=== PATIENT | male | born 1935 | race Caucasian/White ===

== ENCOUNTER 2019-03-05 10:21 | Inpatient (IN) | payer MEDICARE, OTHER ==
[~2019-03-05] VITALS: Ht 176 cm; Wt 71.4 kg
[~2019-03-05 10:21] MED LIST: ACET325T49 PO; ALBU2.5V4 INH; ASCORBIC ACID 300 MG; ASP325T; ASP81CT; ASPI-586 PO; ATRV10T; BETA1TAB15 PO; BISA5TAB8 PO; CARV3.122 PO; CHOL10002; DOCU100C37 PO; HYDR-3820 PO; HYDROCODONE/APAP; LACT20SO2 PO; LISI-556 PO; LUMIGAN EYE; MULT1TAB63; OMG1KC; OMG1KC PO; PRAV40TA2 PO; PRESSOR VISION PO; RMP5C; SENN-141 PO; TRAM50TA2 PO; ULTRAM; [UNRECOGNIZED DRUG - OTHER]
--- NOTE | 2019-03-05 10:31 | ED GI ---
General Stated Complaint: BLOOD IN STOOL Source of Information: Patient Exam Limitations: No Limitations History of Present Illness Date Seen by Provider: Mar 05, 2019 Time Seen by Provider: 10:29 Initial Comments ER with reports of grossly bloody stools including clots, he states this has filled with stool with blood 2 or 3 times today, no history of this no abdominal pain no lightheadedness no shortness of breath. He is not on any anticoagulant or antiplatelet medications. Timing/Duration: 4-6 Hours Radiation: No Radiation Activities at Onset: None Allergies and Home Medications Allergies Coded Allergies: No Known Drug Allergies (Unverified , 11/15/15) Home Medications Bisacodyl 5 Mg Tablet.dr, 5 MG PO PRN PRN for CONSTIPATION Prescribed by: ANSELMO LUNA on 03/17/16932 Carvedilol 3.125 Mg Tablet, 3.125 MG PO BID, (Reported) Docusate Sodium 100 Mg Capsule, 100 MG PO BID Prescribed by: ANSELMO LUNA on 03/17/16932 Hydrocodone/Acetaminophen 1 Each Tablet, 1 TAB PO Q4H PRN for PAIN Prescribed by: ANSELMO LUNA on 03/28/16 1251 Ibuprofen 200 Mg Tablet, 200 MG PO Q6H PRN for PAIN-MILD, (Reported) Lisinopril 5 Mg Tablet, 5 MG PO DAILY, (Reported) [place] 3 Polyunsat Fatty Acids 1,000 Mg Cap, 1,000 MG PO BID, (Reported) Pravastatin Sodium 40 Mg Tablet, 40 MG PO HS, (Reported) Sennosides 8.6 Mg Tablet, 8.6 MG PO BID Prescribed by: ANSELMO LUNA on 03/17/16932 Vit A/Vit C/Vit E/Zinc/Copper 1 Each Tablet, 1 TAB PO BID, (Reported) Patient Home Medication List Home Medication List Reviewed: Yes (Where) Review of Systems Review of Systems Constitutional: see HPI EENTM: No Symptoms Reported Respiratory: No Symptoms Reported Cardiovascular: No Symptoms Reported Gastrointestinal: See HPI; Denies Abdominal Pain, Denies Diarrhea, Denies Nausea; Rectal Bleeding Genitourinary: No Symptoms Reported Musculoskeletal: no symptoms reported Skin: no symptoms reported Psychiatric/Neurological: No Symptoms Reported Endocrine: No Symptoms Reported Past Bputwfx-Tguknh-Klfpes Hx Patient Social History Former Smoker, Quit: Nov 20, 1969 Recent Foreign Travel: No Contact w/Someone Who Travel: No Recent Hopitalizations: No Immunizations Up To Date Tetanus Booster (TDap): More than 5yrs Date of Pneumonia Vaccine: Nov 21, 1999 Seasonal Allergies Seasonal Allergies: Yes Past Medical History CABG, Open Heart Surgery, Orthopedic Asthma Currently Using CPAP: No Currently Using BIPAP: No Coronary Artery Disease Reproductive Disorders: No Sexually Transmitted Disease: No HIV/AIDS: No Gastroesophageal Reflux, Chronic Constipation, Polyps Back Injury Cataract Loss of Vision: Bilateral Hearing Impairment: Hard of Hearing Adverse Reaction/Blood Tranf: No Family Medical History Cancer Physical Exam Vital Signs Vital Signs - First Documented 03/05/19 10:21 Temp 36.7 Pulse 54 Resp 18 B/P (MAP) 145/100 (115) Pulse Ox 97 O2 Delivery Room Air Capillary Refill : Height/Weight/BMI Height: 6'0.00" Weight: 169lbs. 0.8oz. [id number]; 22.0 BMI Method:Stated General Appearance: WD/WN, no apparent distress, other (is alert and oriented conversational appropriate and pleasant.) HEENT: PERRL/EOMI, normal ENT inspection Neck: non-tender, full range of motion Respiratory: no respiratory distress, no accessory muscle use Cardiovascular: regular rate, rhythm, no murmur Gastrointestinal: normal bowel sounds, non tender, soft Extremities: normal range of motion, non-tender Progress/Results/Core Measures Results/Orders Lab Results Laboratory Tests Test 03/05/19 10:27 Range/Units White Blood Count 9.6 4.3-11.0 10^3/uL Red Blood Count 3.97 L 4.35-5.85 10^6/uL Hemoglobin 12.0 L 13.3-17.7 G/DL Hematocrit 37 L 40-54 % Mean Corpuscular Volume 92 80-99 FL Mean Corpuscular Hemoglobin 30 25-34 PG Mean Corpuscular Hemoglobin Concent 33 32-36 G/DL Red Cell Distribution Width 12.5 10.0-14.5 % Platelet Count 251 130-400 10^3/uL Mean Platelet Volume 9.8 7.4-10.4 FL Neutrophils (%) (Auto) 66 42-75 % Lymphocytes (%) (Auto) 22 12-44 % Monocytes (%) (Auto) 9 0-12 % Eosinophils (%) (Auto) 3 0-10 % Basophils (%) (Auto) 0 0-10 % Neutrophils # (Auto) 6.3 1.8-7.8 X 10^3 Lymphocytes # (Auto) 2.1 1.0-4.0 X 10^3 Monocytes # (Auto) 0.9 0.0-1.0 X 10^3 Eosinophils # (Auto) 0.3 0.0-0.3 10^3/uL Basophils # (Auto) 0.0 0.0-0.1 10^3/uL Prothrombin Time 13.5 12.2-14.7 SEC INR Comment 1.0 0.8-1.4 Activated Partial Thromboplast Time 33 24-35 SEC Sodium Level 141 135-145 MMOL/L Potassium Level 4.0 3.6-5.0 MMOL/L Chloride Level 108 H 98-107 MMOL/L Carbon Dioxide Level 24 21-32 MMOL/L Anion Gap 9 5-14 MMOL/L Blood Urea Nitrogen 22 H 7-18 MG/DL Creatinine 0.86 0.60-1.30 MG/DL Estimat Glomerular Filtration Rate > 60 BUN/Creatinine Ratio 26 Glucose Level 99 70-105 MG/DL Calcium Level 9.6 8.5-10.1 MG/DL Corrected Calcium 9.4 8.5-10.1 MG/DL Total Bilirubin 1.0 0.1-1.0 MG/DL Aspartate Amino Transf (AST/SGOT) 18 5-34 U/L Alanine Aminotransferase (ALT/SGPT) 18 0-55 U/L Alkaline Phosphatase 96 40-136 U/L Total Protein 6.8 6.4-8.2 GM/DL Albumin 4.3 3.2-4.5 GM/DL My Orders Orders - BUD BOWDEN APRN Cbc With Automated Diff (03/05/19 10:24) Comprehensive Metabolic Panel (03/05/19 10:24) Ed Iv/Invasive Line Start (03/05/19 10:24) Protime With Inr (03/05/19 10:24) Partial Thromboplastin Time (03/05/19 10:24) Red Cells Leukocytes Reduced (03/05/19 10:24) Type And Screen (03/05/19 10:24) Clonidine Tablet (Catapres Tablet) (03/05/19 11:00) Medications Given in ED Current Medications Medications Dose Ordered Sig/Gerardo Route Start Time Stop Time Status Last Admin Dose Admin Clonidine HCl 0.1 mg ONCE ONCE PO 03/05/19 11:00 03/05/19 11:01 DC 03/05/19 11:25 0.1 MG Vital Signs/I&O 03/05/19 10:21 Temp 36.7 Pulse 54 Resp 18 B/P (MAP) 145/100 (115) Pulse Ox 97 O2 Delivery Room Air Departure Communication (Admissions) Time/Spoke to Admitting Phy: 12:16 Dr. Leigh, agrees with admission, consult surgery. Time/Spoke to Consulting Phy: 12:[address] Menezes, will consult. Impression Primary Impression: GI bleed Qualified Codes: K92.2 - Gastrointestinal hemorrhage, unspecified Disposition: ADMITTED INPATIENT Condition: Stable Admissions Decision to Admit Reason: Admit from ER (General) Decision to Admit/Date: Mar 05, 2019 Time/Decision to Admit Time: 12:00 Departure-Patient Inst. Referrals: CHENG BABCOCK MD (PCP/Family) Primary Care Physician BUD BOWDEN APRN Mar 05, 2019 10:31
[2019-03-05 10:39] LABS: BASOPHILS % (AUTO) 0 % (0-10); EOSINOPHILS # (AUTO) 0.3 10^3/uL (0.0-0.3); EOSINOPHILS % (AUTO) 3 % (0-10); HEMATOCRIT 37 % (40-54); LYMPHOCYTES # (AUTO) 2.1 X 10^3 (1.0-4.0); LYMPHOCYTES % (AUTO) 22 % (12-44); MEAN CORPUSCULAR HEMOGLOBIN 30 PG (25-34); MEAN CORPUSCULAR HGB CONC 33 G/DL (32-36); MEAN CORPUSCULAR VOLUME 92 FL (80-99); MEAN PLATELET VOLUME 9.8 FL (7.4-10.4); MONOCYTES # (AUTO) 0.9 X 10^3 (0.0-1.0); MONOCYTES % (AUTO) 9 % (0-12); NEUTROPHILS # (AUTO) 6.3 X 10^3 (1.8-7.8); NEUTROPHILS % (AUTO) 66 % (42-75); PLATELET COUNT 251 10^3/uL (130-400); RED CELL DISTRIBUTION WIDTH 12.5 % (10.0-14.5); WHITE BLOOD COUNT 9.6 10^3/uL (4.3-11.0)
[2019-03-05 10:51] LABS: PROTHROMBIN TIME PATIENT 13.5 SEC (12.2-14.7)
[2019-03-05 10:57] LABS: ALANINE AMINOTRANSFERASE 18 U/L (0-55); ALBUMIN 4.3 GM/DL (3.2-4.5); ALKALINE PHOSPHATASE 96 U/L (40-136); BUN/CREATININE RATIO 26; CALCIUM 9.6 MG/DL (8.5-10.1); CARBON DIOXIDE 24 MMOL/L (21-32); CHLORIDE 108 MMOL/L (98-107); CREATININE SERUM 0.86 MG/DL (0.60-1.30); GFR ESTIMATED > 60; GLUCOSE 99 MG/DL (70-105); SODIUM 141 MMOL/L (135-145); TOTAL PROTEIN 6.8 GM/DL (6.4-8.2)
[2019-03-05] MEDS ORDERED: cloNIDine 0.1 MG (CATAPRES) TAB PO ONE (11:00)
--- NOTE | 2019-03-05 11:27 | NUR ---
BUD BROUGHT INTO THE ROOM TO SHOW HIM THE BLOOD THAT WAS PASSED. PT STATES IT IS THE 3RD TIME HE HAS WENT SINCE HE CAME HERE. PT DENIES PAIN.
--- NOTE | 2019-03-05 12:20 | NUR ---
PT NOTIFEID OF ROOM NUMBER AND PLANS FOR ADMIT. PT STATES HE HAS PASSED MORE BLOOD.
--- NOTE | 2019-03-05 12:40 | NUR ---
DR HENSON IN TALKING TO PT.
--- NOTE | 2019-03-05 13:00 | NUR ---
RDLUKE admitted to room 415-1, with an admitting diagnosis of GI BLEED, on 03/05/19 from ED via STRETCHER, accompanied by AND ED STAFF. LUKE SULTANA introduced to surroundings, call light, bed controls, phone, TV, temperature control, lights, meal times, smoking policy, visitor policy, side rail policy, bathrooms and showers. Patient Rights given to patient in the handbook. LUKE SULTANA verbalizes understanding that [facility] is not responsible for the loss or damage to any personal effects or valuables that are kept in the patients possession during their hospitalization. The following Patient Care Plans were discussed with the PATIENT: Discharge Planning, GI BLEED and KNOWLEDGE DEFICIT LUKE SULTANA verbalizes understanding of Interdisciplinary Patient Education. Patient and/or family were informed about the Rapid Response Team and its purpose.
--- NOTE | 2019-03-05 13:17 | History & Physical-Surgical ---
History of Present Illness History of Present Illness Reason for visit/HPI CC: Bright Red Blood in Stool Patient is an 83 yo male that presented to the ED with a 1 day history of bright red blood including clots in his stool. Mr. Fabian states he has had several bowel movement this morning, all with bright red blood. He states he had blood in his stool prior just after a colonoscopy with polypectomy. He states at that time he continued to bleed from the polyp removal and was seen in the ED. He does not remember when this was but states it was greater than 5 years ago. He denies any use of blood thinners including anticoagulants and antiplatelets. He denies any nausea, vomiting, abdominal pain at this time. He states he struggles with constipation and takes 2 stool softeners daily but that his bowel movements have been regular lately. He denies any shortness of breath, weakness, or dizziness at this time. Date of Admission Mar 05, 2019 at 12:14 Date Seen by a Provider: Mar 05, 2019 Time Seen by a Provider: 13:00 I consulted on this patient on 03/05/19 13:16 Attending Physician Suzanne Leigh MD Admitting Physician Blair Elder MD Consult Dr. Menezes Allergies and Home Medications Allergies Coded Allergies: No Known Drug Allergies (Unverified , 11/15/15) Home Medications Acetaminophen 325 Mg Tablet, 325 MG PO Q6H PRN for Temp over 100 F or Mild Pain Prescribed by: ANSELMO LUNA on 03/17/16932 Aspirin 81 Mg Tablet., 81 MG PO DAILY, (Reported) Bisacodyl 5 Mg Tablet., 5 MG PO PRN PRN for CONSTIPATION Prescribed by: ANSELMO LUNA on 03/17/16 09 Carvedilol 3.125 Mg Tablet, 3.125 MG PO BID, (Reported) Docusate Sodium 100 Mg Capsule, 100 MG PO BID Prescribed by: ANSELMO LUNA on 03/17/16 09 Hydrocodone/Acetaminophen 1 Each Tablet, 1 TAB PO Q4H PRN for PAIN Prescribed by: ANSELMO LUNA on 03/28/16 1251 Lisinopril 5 Mg Tablet, 5 MG PO DAILY, (Reported) [place] 3 Polyunsat Fatty Acids 1,000 Mg Cap, 1,000 MG PO BID, (Reported) Pravastatin Sodium 40 Mg Tablet, 40 MG PO HS, (Reported) Sennosides 8.6 Mg Tablet, 8.6 MG PO BID Prescribed by: ANSELMO LUNA on 03/17/16 0933 Tramadol HCl 50 Mg Tablet, 50 MG PO Q4H PRN for MILD PAIN Prescribed by: ANSELMO LUNA on 03/28/16 1251 Vit A/Vit C/Vit E/Zinc/Copper 1 Each Tablet, 1 TAB PO BID, (Reported) Past Bqpoahz-Zpmumb-Mpdfrp Hx Patient Social History Smoking Status: Former Smoker Former Smoker, Quit: Nov 20, 1969 Recent Foreign Travel: No Contact w/Someone Who Travel: No Recent Infectious Disease Expo: No Recent Hopitalizations: No Immunizations Up To Date Tetanus Booster (TDap): More than 5yrs Date of Pneumonia Vaccine: Nov 21, 1999 Seasonal Allergies Seasonal Allergies: Yes Surgeries History of Surgeries: Yes Surgeries: CABG, Open Heart Surgery, Orthopedic Respiratory History of Respiratory Disorde: Yes Respiratory Disorders: Asthma Cardiovascular History of Cardiac Disorders: Yes (triple bypass) Cardiac Disorders: Coronary Artery Disease Neurological History of Neurological Disord: No Reproductive System Hx Reproductive Disorders: No Sexually Transmitted Disease: No HIV/AIDS: No Gastrointestinal History of Gastrointestinal Di: Yes Gastrointestinal Disorders: Gastroesophageal Reflux, Chronic Constipation, Polyps Musculoskeletal History of Musculoskeletal Dis: Yes Musculoskeletal Disorders: Back Injury Endocrine History of Endocrine Disorders: No HEENT HEENT Disorders: Cataract Loss of Vision: Bilateral Hearing Impairment: Hard of Hearing Cancer History of Cancer: No Psychosocial History of Psychiatric Problem: No Integumentary History of Skin or Integumenta: No Blood Transfusions History of Blood Disorders: No Adverse Reaction to a Blood Tr: No Family Medical History Significant Family History: Cancer Family Medial History: Neoplasm 19 FATHER (LEUKEMIA) 19 MOTHER (STOMACH INTESTINE CANCER) Review of Systems Constitutional: No chills, No dizziness, No fever EENTM: hearing loss (chronic); No nose congestion Respiratory: No cough, No short of breath Cardiovascular: No chest pain, No syncope Gastrointestinal: No abdominal pain, No constipation, No diarrhea; melena; No nausea, No vomiting; other (hematochezia ) Skin: No pruritus, No rash Psychiatric/Neurological: Denies Numbness, Denies Weakness Physical Exam Vital Signs Vital Signs - First Documented 03/05/19 10:21 Temp 36.7 Pulse 54 Resp 18 B/P (MAP) 145/100 (115) Pulse Ox 97 O2 Delivery Room Air Capillary Refill : Less Than 3 Seconds Height, Weight, BMI Height: 6'0.00" Weight: 169lbs. 0.8oz. 76.311604kw; 23.00 BMI Method:Stated General Appearance: No Apparent Distress, WD/WN HEENT: PERRL/EOMI, Pharynx Normal, Moist Mucous Membranes Neck: Non Tender, Supple Respiratory: Chest Non Tender, Lungs Clear, Normal Breath Sounds, No Accessory Muscle Use, No Respiratory Distress Cardiovascular: Regular Rate, Rhythm, No Murmur Gastrointestinal: Normal Bowel Sounds, Non Tender, Soft; No Distended, No Guarding Rectal: Deferred Extremity: No Calf Tenderness, Pedal Edema Neurologic/Psychiatric: Alert, Oriented x3 Skin: Normal Color, Warm/Dry Data Review Labs Laboratory Tests 03/05/19 10:27: White Blood Count 9.6, Red Blood Count 3.97L, Hemoglobin 12.0L, Hematocrit 37L, Mean Corpuscular Volume 92, Mean Corpuscular Hemoglobin 30, Mean Corpuscular Hemoglobin Concent 33, Red Cell Distribution Width 12.5, Platelet Count 251, Mean Platelet Volume 9.8, Neutrophils (%) (Auto) 66, Lymphocytes (%) (Auto) 22, Monocytes (%) (Auto) 9, Eosinophils (%) (Auto) 3, Basophils (%) (Auto) 0, Neutrophils # (Auto) 6.3, Lymphocytes # (Auto) 2.1, Monocytes # (Auto) 0.9, Eosinophils # (Auto) 0.3, Basophils # (Auto) 0.0, Prothrombin Time 13.5, INR Comment 1.0, Activated Partial Thromboplast Time 33, Sodium Level 141, Potassium Level 4.0, Chloride Level 108H, Carbon Dioxide Level 24, Anion Gap 9, Blood Urea Nitrogen 22H, Creatinine 0.86, Estimat Glomerular Filtration Rate > 60, BUN/Creatinine Ratio 26, Glucose Level 99, Calcium Level 9.6, Corrected Calcium 9.4, Total Bilirubin 1.0, Aspartate Amino Transf (AST/SGOT) 18, Alanine Aminotransferase (ALT/SGPT) 18, Alkaline Phosphatase 96, Total Protein 6.8, Albumin 4.3 Assessment/Plan Assessment/Plan Assessment/Plan Bright Red Blood Per Rectum Will continue to monitor hemoglobin, and transfuse if necessary. No surgical intervention needed at this time. If changes may need surgical intervention or colonoscopy, if remains stable/bleeding stops can do colonoscopy outpatient. THAD GOODMAN,MED STUDENT Mar 05, 2019 13:16
[2019-03-05 13:32] VITALS: BP 101/66
--- NOTE | 2019-03-05 13:43 | Consultation - Surgery ---
THAD GOODMAN,MED STUDENT 03/05/19 1343: History of Present Illness History of Present Illness Patient Consulted On(samuel/time) 03/05/19 13:40 Date Seen by Provider: Mar 05, 2019 Time Seen by Provider: 13:00 History of Present Illness CC: Bright Red Blood in Stool Patient is an 83 yo male that presented to the ED with a 1 day history of bright red blood including clots in his stool. Mr. Fabian states he has had several bowel movement this morning, all with bright red blood. He states he had blood in his stool prior just after a colonoscopy with polypectomy. He states at that time he continued to bleed from the polyp removal and was seen in the ED. He does not remember when this was but states it was greater than 5 years ago. He denies any use of blood thinners including anticoagulants and antiplatelets. He denies any nausea, vomiting, abdominal pain at this time. He states he struggles with constipation and takes 2 stool softeners daily but that his bowel movements have been regular lately. He denies any shortness of breath, weakness, or dizziness at this time. Allergies and Home Medications Allergies Coded Allergies: No Known Drug Allergies (Unverified , 11/15/15) Home Medications Bisacodyl 5 Mg Tablet.dr, 5 MG PO PRN PRN for CONSTIPATION Prescribed by: ANSELMO LUNA on 03/17/16 09 Carvedilol 3.125 Mg Tablet, 3.125 MG PO BID, (Reported) Docusate Sodium 100 Mg Capsule, 100 MG PO BID Prescribed by: ANSELMO LUNA on 03/17/16 09 Hydrocodone/Acetaminophen 1 Each Tablet, 1 TAB PO Q4H PRN for PAIN Prescribed by: ANSELMO LUNA on 03/28/16 1251 Ibuprofen 200 Mg Tablet, 200 MG PO Q6H PRN for PAIN-MILD, (Reported) Lisinopril 5 Mg Tablet, 5 MG PO DAILY, (Reported) [place] 3 Polyunsat Fatty Acids 1,000 Mg Cap, 1,000 MG PO BID, (Reported) Pravastatin Sodium 40 Mg Tablet, 40 MG PO HS, (Reported) Sennosides 8.6 Mg Tablet, 8.6 MG PO BID Prescribed by: ANSELMO LUNA on 03/17/16 0933 Vit A/Vit C/Vit E/Zinc/Copper 1 Each Tablet, 1 TAB PO BID, (Reported) Past Jnybzex-Iixbhj-Xxglly Hx Patient Social History Alcohol Use: Denies Use Recreational Drug Use: No Smoking Status: Former Smoker Former Smoker, Quit: Nov 20, 1969 Recent Foreign Travel: No Contact w/Someone Who Travel: No Recent Infectious Disease Expo: No Recent Hopitalizations: No Physical Abuse Screen: No Sexual Abuse: No Immunizations Up To Date Tetanus Booster (TDap): More than 5yrs Date of Pneumonia Vaccine: Nov 21, 1999 Seasonal Allergies Seasonal Allergies: No Surgeries History of Surgeries: Yes (TROY IN HIP) Surgeries: CABG, Open Heart Surgery, Orthopedic Respiratory History of Respiratory Disorde: Yes Respiratory Disorders: Asthma Cardiovascular History of Cardiac Disorders: Yes (triple bypass) Cardiac Disorders: Coronary Artery Disease Neurological History of Neurological Disord: No Reproductive System Hx Reproductive Disorders: No Sexually Transmitted Disease: No HIV/AIDS: No Genitourinary History of Genitourinary Disor: No Gastrointestinal History of Gastrointestinal Di: Yes Gastrointestinal Disorders: Polyps Musculoskeletal History of Musculoskeletal Dis: Yes Musculoskeletal Disorders: Back Injury Endocrine History of Endocrine Disorders: No HEENT History of HEENT Disorders: Yes HEENT Disorders: Cataract Loss of Vision: Bilateral Hearing Impairment: Hard of Hearing Cancer History of Cancer: No Psychosocial History of Psychiatric Problem: No Integumentary History of Skin or Integumenta: No Blood Transfusions History of Blood Disorders: No Adverse Reaction to a Blood Tr: No Family Medical History Significant Family History: Cancer Family Medial History: Neoplasm 19 FATHER (LEUKEMIA) 19 MOTHER (STOMACH INTESTINE CANCER) Review of Systems-General Constitutional: No chills, No dizziness, No fever, No weakness EENTM: hearing loss (chronic); No nose congestion Respiratory: No cough, No short of breath Cardiovascular: No chest pain, No syncope Gastrointestinal: No abdominal pain, No constipation, No diarrhea, No hematemesis, No nausea, No vomiting; other (hematochezia) Skin: No pruritus, No rash Psychiatric/Neurological: Denies Numbness, Denies Weakness Physical Exam-General Problems Physical Exam Vital Signs Vital Signs - First Documented 03/05/19 10:21 Temp 36.7 Pulse 54 Resp 18 B/P (MAP) 145/100 (115) Pulse Ox 97 O2 Delivery Room Air Capillary Refill : Less Than 3 Seconds General Appearance: WD/WN, no apparent distress Eyes: Bilateral Eye PERRL, Bilateral Eye EOMI HEENT: PERRL/EOMI, pharynx normal, other (mucous membranes moist) Respiratory: chest non-tender, lungs clear, normal breath sounds, no respiratory distress, no accessory muscle use Cardiovascular: regular rate, rhythm, no murmur Peripheral Pulses: 2+ Radial Pulses (R), 2+ Radial Pulses (L) Gastrointestinal: normal bowel sounds, non tender, soft; No distended, No guarding, No rebound Rectal: deferred Extremities: no calf tenderness, pedal edema Neurologic/Psychiatric: alert, oriented x 3 Skin: normal color, warm/dry Data Review Labs Laboratory Tests 03/05/19 10:27: White Blood Count 9.6, Red Blood Count 3.97L, Hemoglobin 12.0L, Hematocrit 37L, Mean Corpuscular Volume 92, Mean Corpuscular Hemoglobin 30, Mean Corpuscular Hemoglobin Concent 33, Red Cell Distribution Width 12.5, Platelet Count 251, Mean Platelet Volume 9.8, Neutrophils (%) (Auto) 66, Lymphocytes (%) (Auto) 22, Monocytes (%) (Auto) 9, Eosinophils (%) (Auto) 3, Basophils (%) (Auto) 0, Neutrophils # (Auto) 6.3, Lymphocytes # (Auto) 2.1, Monocytes # (Auto) 0.9, Eosinophils # (Auto) 0.3, Basophils # (Auto) 0.0, Prothrombin Time 13.5, INR Comment 1.0, Activated Partial Thromboplast Time 33, Sodium Level 141, Potassium Level 4.0, Chloride Level 108H, Carbon Dioxide Level 24, Anion Gap 9, Blood Urea Nitrogen 22H, Creatinine 0.86, Estimat Glomerular Filtration Rate > 60, BUN/Creatinine Ratio 26, Glucose Level 99, Calcium Level 9.6, Corrected Calcium 9.4, Total Bilirubin 1.0, Aspartate Amino Transf (AST/SGOT) 18, Alanine Aminotransferase (ALT/SGPT) 18, Alkaline Phosphatase 96, Total Protein 6.8, Albumin 4.3 Assessment/Plan Assessment/Plan Assessment/Plan Bright Red Blood Per Rectum Will continue to monitor hemoglobin, and transfuse if necessary. No surgical intervention needed at this time. If changes may need surgical intervention or colonoscopy, if remains stable/bleeding stops can do colonoscopy outpatient. Clinical Quality Measures DVT/VTE Risk/Contraindication: Risk Factor Score Per Nursin RFS Level Per Nursing on Admit: 2=Moderate RENU HENSON DO 03/05/192028: History of Present Illness History of Present Illness History of Present Illness consult requested by Dr. Leigh patient is an 83 year old male with blood in stool. Bright red and clots. Havi ng multiple bloody stools. Patient does not have any abdominal pain or reflux. He is not on any anticoagulation. Nothing has made things worse or better that he knows. He is not having any dizziness or syncope. Patient has had previous colonoscopy which he had bleeding from years ago. No other complaints at this time. Denies n/v fever sweats chills shortness of breath or chest pain. Allergies and Home Medications Allergies Coded Allergies: No Known Drug Allergies (Unverified , 11/15/15) Home Medications Bisacodyl 5 Mg Tablet.dr, 5 MG PO PRN PRN for CONSTIPATION Prescribed by: ANSELMO LUNA on 03/17/16 0933 Carvedilol 3.125 Mg Tablet, 3.125 MG PO BID, (Reported) Docusate Sodium 100 Mg Capsule, 100 MG PO BID Prescribed by: ANSELMO LUNA on 03/17/16 0933 Hydrocodone/Acetaminophen 1 Each Tablet, 1 TAB PO Q4H PRN for PAIN Prescribed by: ANSELMO LUNA on 03/28/16 1251 Ibuprofen 200 Mg Tablet, 200 MG PO Q6H PRN for PAIN-MILD, (Reported) Lisinopril 5 Mg Tablet, 5 MG PO DAILY, (Reported) [place] 3 Polyunsat Fatty Acids 1,000 Mg Cap, 1,000 MG PO BID, (Reported) Pravastatin Sodium 40 Mg Tablet, 40 MG PO HS, (Reported) Sennosides 8.6 Mg Tablet, 8.6 MG PO BID Prescribed by: ANSELMO LUNA on 03/17/16 0933 Vit A/Vit C/Vit E/Zinc/Copper 1 Each Tablet, 1 TAB PO BID, (Reported) Patient Home Medication List Home Medication List Reviewed: Yes Past Cbbvvmx-Fbgqus-Mdoflv Hx Patient Social History Alcohol Use: Denies Use Recreational Drug Use: No Smoking Status: Former Smoker Surgeries Surgeries: CABG, Open Heart Surgery, Orthopedic Respiratory History of Respiratory Disorde: Yes Respiratory Disorders: Asthma Cardiovascular History of Cardiac Disorders: Yes (triple bypass) Cardiac Disorders: Coronary Artery Disease Genitourinary History of Genitourinary Disor: No Gastrointestinal History of Gastrointestinal Di: Yes Musculoskeletal History of Musculoskeletal Dis: Yes Musculoskeletal Disorders: Back Injury Endocrine History of Endocrine Disorders: No HEENT History of HEENT Disorders: Yes HEENT Disorders: Cataract Hearing Impairment: Hard of Hearing Cancer History of Cancer: No Psychosocial History of Psychiatric Problem: No Integumentary History of Skin or Integumenta: No Blood Transfusions History of Blood Disorders: No Adverse Reaction to a Blood Tr: No Family Medical History Significant Family History: No Pertinent Family Hx, Cancer Family Medial History: Neoplasm 19 FATHER (LEUKEMIA) 19 MOTHER (STOMACH INTESTINE CANCER) Review of Systems-General Constitutional: no symptoms reported EENTM: no symptoms reported, hearing loss (chronic) Respiratory: no symptoms reported Cardiovascular: no symptoms reported Gastrointestinal: see HPI Genitourinary: no symptoms reported Musculoskeletal: no symptoms reported Skin: no symptoms reported Psychiatric/Neurological: No Symptoms Reported Physical Exam-General Problems Physical Exam General Appearance: WD/WN, no apparent distress HEENT: PERRL/EOMI, normal ENT inspection Neck: non-tender, supple Respiratory: chest non-tender, no respiratory distress, no accessory muscle use Cardiovascular: regular rate, rhythm Gastrointestinal: non tender, soft, no organomegaly Rectal: deferred (at this time) Back: normal inspection, no CVA tenderness Extremities: non-tender, normal inspection, no calf tenderness Neurologic/Psychiatric: alert, normal mood/affect, oriented x 3 Skin: normal color, warm/dry Lymphatic: no adenopathy Assessment/Plan Assessment/Plan Assessment/Plan bright red blood per rectum history of polyps patient being admitted for further evaluation follow hgb transfuse prn if continues to have bleed colonoscopy inpatient vs outpatient no surgical intervention at this time will follow Supervisory-Addendum Brief Verification & Attestation Participated in pt care: history, MDM, physical Personally performed: exam, history, MDM, supervision of care Care discussed with: Medical Student Procedures: n/a Results interpretation: Verified all documentation Verification and Attestation of Medical Student E/M Service A medical student performed and documented this service in my presence. I reviewed and verified all information documented by the medical student and made modifications to such information, when appropriate. I personally performed the physical exam and medical decision making. Renu Henson, Mar 05, 2019,20:30 THAD GOODMAN MED STUDENT Mar 05, 2019 13:43 RENU HENSON DO Mar 05, 2019 20:29
--- NOTE | 2019-03-05 15:16 | NUR ---
CALLED DR RM. PATIENT IS REQUESTING PAIN MEDICATION. THE DOCTOR WILL BE HERE SOON TO TALK TO THE PATIENT.
[2019-03-05] MEDS: LACTATED RINGERS 1,000 ML IV SCH (15:32)
[2019-03-05 16:00] VITALS: BP 156/79
[2019-03-05] MEDS ORDERED: IBUP-2055 PO (16:19)
[2019-03-05 16:49] LABS: HEMOGLOBIN 10.6 G/DL (13.3-17.7)
--- NOTE | 2019-03-05 17:50 | NUR ---
LEFT MESSAGE FOR DR RM. THE PATIENT IS STILL WANTING HIS PAIN MEDICATION.
[2019-03-05] MEDS ORDERED: hydrALAZINE (APESOLINE) 20 MG/ML VIAL IV PRN (18:45)
[2019-03-05] MEDS ORDERED: ONDANSETRON 4 MG (ZOFRAN) ORAL DISSOLVE TAB PO PRN (18:45)
[2019-03-05] MEDS ORDERED: MELATONIN 3 MG TABLET PO PRN (18:45)
[2019-03-05] MEDS ORDERED: ONDANSETRON 4 MG/2 ML (SDV) Z0FRAN IVP PRN (18:45)
[2019-03-05] MEDS ORDERED: ANTACID SUSP 30 ML UDC (MYLANTA) PO PRN (18:45)
[2019-03-05] MEDS: HYDROcodone/APAP 10 MG/325 MG (LORTAB) TAB PO PRN ×2 (18:48→21:19)
--- NOTE | 2019-03-05 18:48 | History & Physical-Hospitalist ---
History of Present Illness HPI/Chief Complaint Janes Fabian is an 83yoM with PMH HTN, HLD, who presented with bright red blood per rectum. He reports that he started having bright red blood and clots per rectum. He reports having this once before after a colonoscopy with polypectomy. He reports constipation but says he doesnt strain. He reports having painful hemorrhoids and sometimes there is blood on the toilet paper. He says that he has been going about every 30 minutes since he got here. He denies fevers, chills, chest pain, dyspnea, cough, abdominal pain, nausea, vomiting, and dysuria. He has been taking Ibuprofen frequently for pain. He is also on chronic narcotics for back and leg pain. Source: patient Exam Limitations: no limitations Date Seen 03/05/19 Time Seen by a Provider: 16:30 Attending Physician Suzanne Rm MD PCP Blair Elder MD Referring Physician Date of Admission Mar 05, 2019 at 12:14 Home Medications & Allergies Home Medications Reviewed patient Home Medication Reconciliation performed by pharmacy medication reconciliations clean room technician and/or nursing. Patients Allergies have been reviewed. Allergies Allergies Coded Allergies No Known Drug Allergies (Unverified11/15/15) Past Xvzkpnn-Ersbpi-Adtscb Hx Past Med/Social Hx: Reviewed Nursing Past Med/Soc Hx Patient Social History Alcohol Use: Denies Use Recreational Drug Use: No Smoking Status: Former Smoker Former Smoker, Quit: Nov 20, 1969 Physical Abuse Screen: No Sexual Abuse: No Recent Foreign Travel: No Contact w/other who traveled: No Recent Hopitalizations: No Recent Infectious Disease Expo: No Immunizations Up To Date Tetanus Booster (TDap): More than 5yrs Date of Pneumonia Vaccine: Nov 21, 1999 Seasonal Allergies Seasonal Allergies: No Past Medical History Surgeries: CABG, Open Heart Surgery, Orthopedic Currently Using CPAP: No Currently Using BIPAP: No Cardiac: Coronary Artery Disease Reproductive: No Sexually Transmitted Disease: No HIV/AIDS: No Gastrointestinal: Polyps Musculoskeletal: Back Injury HEENT: Cataract Loss of Vision: Bilateral Hearing Impairment: Hard of Hearing History of Blood Disorders: No Adverse Reaction to Blood Smith: No Family History Neoplasm 19 FATHER (LEUKEMIA) 19 MOTHER (STOMACH INTESTINE CANCER) Cancer Review of Systems Constitutional: no symptoms reported, see HPI EENTM: no symptoms reported Respiratory: no symptoms reported Cardiovascular: no symptoms reported Gastrointestinal: other (hematochezia) Genitourinary: no symptoms reported Musculoskeletal: no symptoms reported Skin: no symptoms reported Psychiatric/Neurological: No Symptoms Reported Physical Exam Physical Exam Vital Signs Vital Signs - First Documented 03/05/19 10:21 Temp 36.7 Pulse 54 Resp 18 B/P (MAP) 145/100 (115) Pulse Ox 97 O2 Delivery Room Air Capillary Refill : Less Than 3 Seconds Height, Weight, BMI Height: 6'0.00" Weight: 169lbs. 0.8oz. [id number]; 23.05 BMI Method:Stated General Appearance: No Apparent Distress, WD/WN, Other (pale) HEENT: PERRL/EOMI, Pharynx Normal, Pale Conjunctivae (L), Pale Conjunctivae (R) Neck: Normal Inspection, Supple Respiratory: Lungs Clear, Normal Breath Sounds, No Respiratory Distress Cardiovascular: Regular Rate, Rhythm, No Edema, No Murmur Gastrointestinal: Normal Bowel Sounds, Non Tender, Soft Extremity: Normal Inspection, Non Tender, No Pedal Edema Neurologic/Psychiatric: Alert, Oriented x3, No Motor/Sensory Deficits, Normal Mood/Affect Skin: Warm/Dry, Pallor Lymphatic: No Adenopathy Results Results/Procedures Labs Laboratory Tests 03/05/19 10:27 03/05/19 16:28 Patient resulted labs reviewed. Assessment/Plan Admission Diagnosis Bright red blood per rectum Admission Status: Inpatient Order (span 2 midnights) Reason for Inpatient Admission: Elderly patient with hematochezia who may require endoscopic intervention Assessment and Plan Bright red blood per rectum External hemorrhoids Acute blood loss anemia -Hgb 12 on admission, 10.9 on repeat -Type and screen done -Continues to have rectal bleeding since admission -NPO at midnight for possible intervention -Repeat Hgb at 2100 -IV fluids ordered -General surgery consulted, appreciate assistance HTN -Received one dose of clonidine in ER -Hold home antihypertensives -IV Hydralazine as needed HLD -Continue statin Chronic back pain -Continue [place] DVT Prophylaxis: SCDs, no pharmacologic prophylaxis due to major active bleeding Diagnosis/Problems Diagnosis/Problems (1) Bright red blood per rectum Status: Acute (2) Acute blood loss anemia Status: Acute (3) External hemorrhoids Status: Chronic (4) HTN (hypertension) Status: Chronic (5) HLD (hyperlipidemia) Status: Chronic Clinical Quality Measures DVT/VTE Risk/Contraindication: Risk Factor Score Per Nursin RFS Level Per Nursing on Admit: 2=Moderate SUZANNE RM MD Mar 05, 2019 18:48
[2019-03-05 20:00] VITALS: BP 117/72
[2019-03-05 21:10] LABS: HEMOGLOBIN 10.1 G/DL (13.3-17.7)
[2019-03-05 23:59] VITALS: BP 155/70
[2019-03-06] MEDS: HYDROcodone/APAP 10 MG/325 MG (LORTAB) TAB PO PRN ×5 (00:56→23:39)
[2019-03-06] MEDS: LACTATED RINGERS 1,000 ML IV SCH ×3 (00:57→20:40)
[2019-03-06 03:47] VITALS: BP 169/73
[2019-03-06 04:58] LABS: BASOPHILS % (AUTO) 0 % (0-10); EOSINOPHILS # (AUTO) 0.2 10^3/uL (0.0-0.3); EOSINOPHILS % (AUTO) 2 % (0-10); HEMATOCRIT 30 % (40-54); HEMOGLOBIN 9.7 G/DL (13.3-17.7); LYMPHOCYTES # (AUTO) 3.3 X 10^3 (1.0-4.0); LYMPHOCYTES % (AUTO) 31 % (12-44); MEAN CORPUSCULAR HEMOGLOBIN 30 PG (25-34); MEAN CORPUSCULAR HGB CONC 32 G/DL (32-36); MEAN CORPUSCULAR VOLUME 93 FL (80-99); MEAN PLATELET VOLUME 10.3 FL (7.4-10.4); MONOCYTES % (AUTO) 9 % (0-12); NEUTROPHILS # (AUTO) 6.3 X 10^3 (1.8-7.8); NEUTROPHILS % (AUTO) 58 % (42-75); PLATELET COUNT 270 10^3/uL (130-400); RED CELL DISTRIBUTION WIDTH 12.7 % (10.0-14.5); WHITE BLOOD COUNT 10.8 10^3/uL (4.3-11.0)
[2019-03-06 05:13] LABS: BUN/CREATININE RATIO 20; CALCIUM 9.1 MG/DL (8.5-10.1); CARBON DIOXIDE 25 MMOL/L (21-32); CHLORIDE 107 MMOL/L (98-107); CREATININE SERUM 0.83 MG/DL (0.60-1.30); GFR ESTIMATED > 60; GLUCOSE 96 MG/DL (70-105); POTASSIUM 3.8 MMOL/L (3.6-5.0); SODIUM 143 MMOL/L (135-145)
[2019-03-06 08:39] VITALS: BP 164/73
[2019-03-06] MEDS: lisINopril 5 MG (PRINIVIL) TABLET PO SCH (08:40)
[2019-03-06] MEDS: CARVEDILOL 3.125 MG (COREG) TABLET PO SCH ×2 (08:40→20:39)
--- NOTE | 2019-03-06 10:07 | Progress Note - Surgery ---
THAD GOODMAN,MED STUDENT 03/06/19 1007: Subjective Date Seen by a Provider: Mar 06, 2019 Time Seen by a Provider: 09:15 Subjective/Events-last exam Patient is an 83 year old male with complaint of bright red blood per rectum. He states that his last bowel movement was last night and had no blood at that time. He denies any abdominal pain, nausea, vomiting, dizziness, or shortness of breath. Review of Systems General: No Chills, No Fatigue HEENT: No Head Aches, No Sinus Congestion Pulmonary: No Dyspnea, No Cough Cardiovascular: No: Chest Pain, Lt Headedness Gastrointestinal: Hematochezia; No: Nausea, Vomiting, Abdominal Pain, Diarrhea, Constipation Genitourinary: No Dysuria, No Retention Musculoskeletal: back pain, leg pain Neurological: No: Weakness, Confusion Objective Exam Vital Signs Date Time Temp Pulse Resp B/P (MAP) Pulse Ox O2 Delivery O2 Flow Rate FiO2 03/06/19 08:39 37.4 58 18 164/73 (103) 100 Room Air 03/06/19 08:00 100 Room Air 03/06/19 03:47 36.6 68 14 169/73 (105) 97 Room Air 03/05/19 23:59 36.7 69 16 155/70 (98) 96 Room Air 03/05/19 20:00 Room Air 03/05/19 20:00 37.0 82 18 117/72 (87) 96 Room Air 03/05/19 16:00 36.8 64 18 156/79 (104) 99 Room Air 03/05/19 13:32 35.6 84 20 101/66 100 Room Air 03/05/19 13:00 100 Room Air 03/05/19 12:50 60 16 162/87 97 Room Air 03/05/19 10:21 36.7 54 18 145/100 (115) 97 Room Air I & O 03/06/19 07:00 Intake Total 1690 ml Balance 1690 ml Capillary Refill : Less Than 3 Seconds General Appearance: No Apparent Distress, WD/WN HEENT: PERRL/EOMI, Pharynx Normal Neck: Normal Inspection, Supple Respiratory: Lungs Clear, Normal Breath Sounds, No Respiratory Distress Cardiovascular: Regular Rate, Rhythm, No Murmur Peripheral Pulses: 2+ Radial Pulses (R), 2+ Radial Pulses (L) Gastrointestinal: normal bowel sounds, non tender, soft; No distended, No guarding, No rebound Extremity: Non Tender, No Pedal Edema Neurologic/Psychiatric: Alert, Oriented x3, Normal Mood/Affect Skin: Warm/Dry, Pallor Results Lab Laboratory Tests 03/05/19 10:27: White Blood Count 9.6, Red Blood Count 3.97L, Hemoglobin 12.0L, Hematocrit 37L, Mean Corpuscular Volume 92, Mean Corpuscular Hemoglobin 30, Mean Corpuscular Hemoglobin Concent 33, Red Cell Distribution Width 12.5, Platelet Count 251, Mean Platelet Volume 9.8, Neutrophils (%) (Auto) 66, Lymphocytes (%) (Auto) 22, Monocytes (%) (Auto) 9, Eosinophils (%) (Auto) 3, Basophils (%) (Auto) 0, Neutrophils # (Auto) 6.3, Lymphocytes # (Auto) 2.1, Monocytes # (Auto) 0.9, Eosinophils # (Auto) 0.3, Basophils # (Auto) 0.0, Prothrombin Time 13.5, INR Comment 1.0, Activated Partial Thromboplast Time 33, Sodium Level 141, Potassium Level 4.0, Chloride Level 108H, Carbon Dioxide Level 24, Anion Gap 9, Blood Urea Nitrogen 22H, Creatinine 0.86, Estimat Glomerular Filtration Rate > 60, BUN/Creatinine Ratio 26, Glucose Level 99, Calcium Level 9.6, Corrected Calcium 9.4, Total Bilirubin 1.0, Aspartate Amino Transf (AST/SGOT) 18, Alanine Aminotransferase (ALT/SGPT) 18, Alkaline Phosphatase 96, Total Protein 6.8, Albumin 4.3 03/05/19 16:28: Hemoglobin 10.6L, Hematocrit 32L 03/05/19 21:00: Hemoglobin 10.1L, Hematocrit 31L 03/06/19 04:00: White Blood Count 10.8, Red Blood Count 3.23L, Hemoglobin 9.7L, Hematocrit 30L, Mean Corpuscular Volume 93, Mean Corpuscular Hemoglobin 30, Mean Corpuscular Hemoglobin Concent 32, Red Cell Distribution Width 12.7, Platelet Count 270, Mean Platelet Volume 10.3, Neutrophils (%) (Auto) 58, Lymphocytes (%) (Auto) 31, Monocytes (%) (Auto) 9, Eosinophils (%) (Auto) 2, Basophils (%) (Auto) 0, Neutrophils # (Auto) 6.3, Lymphocytes # (Auto) 3.3, Monocytes # (Auto) 1.0, Eosinophils # (Auto) 0.2, Basophils # (Auto) 0.0, Sodium Level 143, Potassium Level 3.8, Chloride Level 107, Carbon Dioxide Level 25, Anion Gap 11, Blood Urea Nitrogen 17, Creatinine 0.83, Estimat Glomerular Filtration Rate > 60, BUN/Creatinine Ratio 20, Glucose Level 96, Calcium Level 9.1 Assessment/Plan Assessment/Plan Assessment/Plan Bright Red Blood Per Rectum History of Polyps Continue IVF. Will continue to monitor stool for blood. Recheck hemoglobin every 12 hours, will transfuse is necessary. Continue liquid diet at this time. If patient continues to be stable will likely do colonoscopy outpatient. Clinical Quality Measures DVT/VTE Risk/Contraindication: Risk Factor Score Per Nursin RFS Level Per Nursing on Admit: 2=Moderate RENU MENEZES DO 03/06/19 1036: Subjective Subjective/Events-last exam No bleeding from rectum this morning. hgb slight drop. Patient no abdominal pain. Feeling like everything is improving. Denies n/v fever sweats chills shortness of breath or chest pain. Objective Exam General Appearance: No Apparent Distress HEENT: PERRL/EOMI Neck: Normal Inspection, Non Tender, Supple Respiratory: Chest Non Tender, No Accessory Muscle Use, No Respiratory Distress Cardiovascular: Regular Rate, Rhythm Gastrointestinal: non tender, soft, no organomegaly Extremity: Non Tender Neurologic/Psychiatric: Alert, Oriented x3, Normal Mood/Affect Skin: Normal Color, Warm/Dry Lymphatic: No Adenopathy Assessment/Plan Assessment/Plan Assessment/Plan bright red blood per rectum hx of colon polyps anemia continue conservative management, follow hgb transfuse prn will follow outpatient vs inpatient colonoscopy Supervisory-Addendum Brief Verification & Attestation Participated in pt care: history, MDM, physical Personally performed: exam, history, MDM, supervision of care Care discussed with: Medical Student Procedures: n/a Results interpretation: Verified all documentation Verification and Attestation of Medical Student E/M Service A medical student performed and documented this service in my presence. I reviewed and verified all information documented by the medical student and made modifications to such information, when appropriate. I personally performed the physical exam and medical decision making. Renu Menezes, Mar 06, 2019,10:36 THAD GOODMAN MED STUDENT Mar 06, 2019 10:07 RENU MENEZES DO Mar 06, 2019 10:36
[2019-03-06 12:00] VITALS: BP 160/75
--- NOTE | 2019-03-06 12:56 | Progress Note - Hospitalist ---
Subjective HPI/CC On Admission Date Seen by Provider: Mar 06, 2019 Time Seen by Provider: 10:10 bright red blood per rectum Subjective/Events-last exam He reports no further diarrhea and bright red blood per rectum overnight. He denies lightheadedness, dizziness, chest pain, dyspnea, fever, chills, abdominal pain, nausea, vomiting. Objective Exam Vital Signs Vital Signs Date Time Temp Pulse Resp B/P (MAP) Pulse Ox O2 Delivery O2 Flow Rate FiO2 03/06/19 08:39 37.4 58 18 164/73 (103) 100 Room Air Capillary Refill : Less Than 3 Seconds General Appearance: No Apparent Distress, WD/WN HEENT: PERRL/EOMI, Pharynx Normal Neck: Normal Inspection, Supple Respiratory: Lungs Clear, Normal Breath Sounds, No Respiratory Distress Cardiovascular: Regular Rate, Rhythm, No Edema, Systolic Murmur Gastrointestinal: Normal Bowel Sounds, Non Tender, Soft Extremity: Normal Inspection, Non Tender, No Pedal Edema Neurologic/Psychiatric: Alert, Oriented x3 Skin: Warm/Dry, Pallor Results/Procedures Lab Laboratory Tests 03/05/19 16:28 03/05/19 21:00 03/06/19 04:00 Patient resulted labs reviewed. Assessment/Plan Assessment and Plan Assess & Plan/Chief Complaint Bright red blood per rectum External hemorrhoids Acute blood loss anemia -Hgb 12 on admission, 9.7 this morning -Type and screen done -Bleeding appears to be resolving at this point -General surgery consulted, appreciate assistance -Repeat Hgb this afternoon -IV fluids ordered -Clear liquid diet -Continue to monitor for ongoing bleeding and need for possible endoscopic intervention HTN -Resume home antihypertensives HLD -Continue statin Chronic back pain -Continue [place] DVT Prophylaxis: SCDs, no pharmacologic prophylaxis due to GI bleed Diagnosis/Problems Diagnosis/Problems (1) Bright red blood per rectum Status: Acute (2) Acute blood loss anemia Status: Acute (3) External hemorrhoids Status: Chronic (4) HTN (hypertension) Status: Chronic (5) HLD (hyperlipidemia) Status: Chronic Clinical Quality Measures DVT/VTE Risk/Contraindication: Risk Factor Score Per Nursin RFS Level Per Nursing on Admit: 2=Moderate LAMONTE RM MD Mar 06, 2019 12:56
[2019-03-06 16:00] VITALS: BP 178/79
[2019-03-06 16:25] LABS: HEMOGLOBIN 8.7 G/DL (13.3-17.7); MEAN PLATELET VOLUME 9.5 FL (7.4-10.4); RED CELL DISTRIBUTION WIDTH 12.4 % (10.0-14.5); WHITE BLOOD COUNT 8.4 10^3/uL (4.3-11.0)
[2019-03-06 20:00] VITALS: BP 161/74
[2019-03-07 00:23] VITALS: BP 174/74
[2019-03-07 04:30] VITALS: BP 175/80
[2019-03-07] MEDS: HYDROcodone/APAP 10 MG/325 MG (LORTAB) TAB PO PRN ×2 (05:16→13:14)
[2019-03-07] MEDS: LACTATED RINGERS 1,000 ML IV SCH (05:16)
[2019-03-07 06:41] LABS: HEMOGLOBIN 9.1 G/DL (13.3-17.7); MEAN PLATELET VOLUME 10.2 FL (7.4-10.4); RED CELL DISTRIBUTION WIDTH 12.4 % (10.0-14.5)
[2019-03-07 07:04] LABS: BUN/CREATININE RATIO 16; CALCIUM 8.8 MG/DL (8.5-10.1); CARBON DIOXIDE 26 MMOL/L (21-32); CHLORIDE 111 MMOL/L (98-107); CREATININE SERUM 0.73 MG/DL (0.60-1.30); GFR ESTIMATED > 60; GLUCOSE 95 MG/DL (70-105); POTASSIUM 3.6 MMOL/L (3.6-5.0); SODIUM 143 MMOL/L (135-145)
[2019-03-07] MEDS: CARVEDILOL 3.125 MG (COREG) TABLET PO SCH (08:03)
[2019-03-07] MEDS: lisINopril 5 MG (PRINIVIL) TABLET PO SCH (08:03)
--- NOTE | 2019-03-07 08:05 | NUR ---
HR 60bpm prior to receiving Coreg
[2019-03-07 08:57] VITALS: BP 176/80
[2019-03-07] MEDS ORDERED: DOCU-238 PO (10:52)
--- NOTE | 2019-03-07 10:54 | NUR ---
SPOKE WITH PT WELL CALLING [facility] TO COMPLETE THE MED REC. PT WAS ABLE TO TELL ME HIS MEDS. THE FOLLOWING DATES WERE GIVEN TO ME BY [facility]: 02-03-2019 PRAVASTATIN #90/90DS 02-03-2019 LISINOPRIL#90/90 02-03-2019 CARVEDILOL #180/90DS 02-03-2019 HYDROCODONE #180/30DS OTC MEDS: IBUPROFEN 200M TABS BID PRN PRESERVISION: 1 DAILY FISH OIL: 1 BID STOOL SOFTENER: 2 TABS BID
[2019-03-07 12:00] VITALS: BP 179/80
--- NOTE | 2019-03-07 14:41 | Discharge Inst-Simple/Standard ---
Discharge Inst-Standard Patient Instructions/Follow Up Plan of Care/Instructions/FU: Please continue to take your medications as written. Please follow up with Dr Elder in the next week. Activity as Tolerated: Yes Discharge Diet: No Restrictions Return to The Hospital For: Bloody or dark stools, abdominal pain, chest pain, shortness of breath, if you feel you are getting worse. GRIFFIN BENTLEY MD Mar 07, 2019 14:41
--- NOTE | 2019-03-07 14:44 | Discharge Summary ---
Diagnosis/Chief Complaint Date of Admission Mar 05, 2019 at 12:14 Date of Discharge Discharge Date: Mar 07, 2019 Admission Diagnosis Bright red blood per rectum Primary Care Blair Elder MD Discharge Diagnosis (1) Bright red blood per rectum Status: Acute (2) Acute blood loss anemia Status: Acute (3) External hemorrhoids Status: Chronic (4) HTN (hypertension) Status: Chronic (5) HLD (hyperlipidemia) Status: Chronic Discharge Summary Discharge Physical Exam Allergies: Coded Allergies: No Known Drug Allergies (Unverified , 11/15/15) Vitals & I&Os Vital Signs Date Time Temp Pulse Resp B/P (MAP) Pulse Ox O2 Delivery O2 Flow Rate FiO2 03/07/19 08:57 36.1 60 18 176/80 (112) 98 Room Air General Appearance: No Apparent Distress, WD/WN Respiratory: Lungs Clear, No Respiratory Distress Cardiovascular: Regular Rate, Rhythm, No Murmur Gastrointestinal: Normal Bowel Sounds, Soft Neurologic/Psychiatric: Alert, Oriented x3 Hospital Course Labs (last 24 hrs) Laboratory Tests 03/06/19 16:15: White Blood Count 8.4, Red Blood Count 2.85L, Hemoglobin 8.7L, Hematocrit 27L, Mean Corpuscular Volume 94, Mean Corpuscular Hemoglobin 31, Mean Corpuscular Hemoglobin Concent 33, Red Cell Distribution Width 12.4, Platelet Count 210, Mean Platelet Volume 9.5 03/07/19 06:05: White Blood Count 8.0, Red Blood Count 2.99L, Hemoglobin 9.1L, Hematocrit 28L, Mean Corpuscular Volume 94, Mean Corpuscular Hemoglobin 30, Mean Corpuscular Hemoglobin Concent 32, Red Cell Distribution Width 12.4, Platelet Count 210, Mean Platelet Volume 10.2, Sodium Level 143, Potassium Level 3.6, Chloride Level 111H, Carbon Dioxide Level 26, Anion Gap 6, Blood Urea Nitrogen 12, Creatinine 0.73, Estimat Glomerular Filtration Rate > 60, BUN/Creatinine Ratio 16, Glucose Level 95, Calcium Level 8.8 Patient resulted labs reviewed. Discharge Home Medications: Active Scripts Active Hydrocodon-Acetaminophn 10-325 (Hydrocodone/Acetaminophen) 1 Each Tablet 1 Tab PO Q4H PRN Reported Stool Softener (Docusate Sodium) 100 Mg Capsule 200 Mg PO BID PRN Ibuprofen 200 Mg Tablet 600 Mg PO BID PRN Preservision Areds Tablet (Vit A/Vit C/Vit E/Zinc/Copper) 1 Each Tablet 1 Tab PO BID Pravastatin Sodium 40 Mg Tablet 40 Mg PO HS Fish Oil 1,000 mg Capsule ([place] 3 Polyunsat Fatty Acids) 1,000 Mg Cap 1,000 Mg PO BID Lisinopril 5 Mg Tablet 5 Mg PO DAILY Carvedilol 3.125 Mg Tablet 3.125 Mg PO BID Instructions to patient/family Please see electronic discharge instructions given to patient. Clinical Quality Measures DVT/VTE Risk/Contraindication: Risk Factor Score Per Nursin RFS Level Per Nursing on Admit: 2=Moderate GRIFFIN BENTLEY MD Mar 07, 2019 14:44
--- NOTE | 2019-03-07 15:18 | NUR ---
Pastoral Care Visit, I visited pt briefly and pleasantly, pt was pleasant. Upon charting I observed not that pt desired no Pastoral care visits.
[2019-03-07 16:00] VITALS: BP 179/75
--- NOTE | 2019-03-07 21:36 | Progress Note - Surgery ---
Subjective Date Seen by a Provider: Mar 07, 2019 Time Seen by a Provider: 08:41 Subjective/Events-last exam no more blood per rectum. patient hgb stable. not having any abdominal pain. or other complaints. wanting to go home. tolerating diet. Denies n/v fever sweats chills shortness of breath or chest pain. Objective Exam Vital Signs Date Time Temp Pulse Resp B/P (MAP) Pulse Ox O2 Delivery O2 Flow Rate FiO2 03/07/19 16:00 36.5 60 18 179/75 (109) 99 Room Air 03/07/19 12:00 36.6 58 18 179/80 (113) 98 Room Air 03/07/19 08:57 36.1 60 18 176/80 (112) 98 Room Air 03/07/19 04:30 36.4 61 16 175/80 (111) 100 Room Air 03/07/19 00:23 36.6 66 22 174/74 (107) 96 Room Air I & O 03/07/19 07:00 Intake Total 3770 ml Output Total 650 ml Balance 3120 ml Capillary Refill : Less Than 3 SecondsLess Than 3 Seconds General Appearance: No Apparent Distress, WD/WN HEENT: PERRL/EOMI, Pharynx Normal Neck: Normal Inspection, Supple Respiratory: Lungs Clear, No Respiratory Distress Cardiovascular: Regular Rate, Rhythm, No Murmur Peripheral Pulses: 2+ Radial Pulses (R), 2+ Radial Pulses (L) Gastrointestinal: non tender, soft, no organomegaly Extremity: Normal Inspection, Non Tender, No Pedal Edema Neurologic/Psychiatric: Alert, Oriented x3 Skin: Warm/Dry, Pallor Lymphatic: No Adenopathy Results Lab Laboratory Tests 03/07/19 06:05: White Blood Count 8.0, Red Blood Count 2.99L, Hemoglobin 9.1L, Hematocrit 28L, Mean Corpuscular Volume 94, Mean Corpuscular Hemoglobin 30, Mean Corpuscular Hemoglobin Concent 32, Red Cell Distribution Width 12.4, Platelet Count 210, Mean Platelet Volume 10.2, Sodium Level 143, Potassium Level 3.6, Chloride Level 111H, Carbon Dioxide Level 26, Anion Gap 6, Blood Urea Nitrogen 12, Creatinine 0.73, Estimat Glomerular Filtration Rate > 60, BUN/Creatinine Ratio 16, Glucose Level 95, Calcium Level 8.8 Assessment/Plan Assessment/Plan Assessment/Plan bright red blood per rectum hx of colon polyps anemia continue conservative management for now he is wanting to go home his hgb is going up and no more blood would follow up outpatient and plan colonoscopy Clinical Quality Measures DVT/VTE Risk/Contraindication: Risk Factor Score Per Nursin RFS Level Per Nursing on Admit: 2=Moderate RENU HENSON DO Mar 07, 2019 21:36
== END 2019-03-07 17:22 | disposition home or self-care (01) | DRG 378 ==
LOC: EDUNIT# 10:21 → ER 10:22 → 4TH 12:14
PROVIDERS: ADMIT Internal Medicine; ATTEND Internal Medicine
DX: K92.1 Melena (principal); D62 Acute posthemorrhagic anemia; K64.4 Residual hemorrhoidal skin tags; I10 Essential (primary) hypertension; I25.10 Atherosclerotic heart disease of native coronary artery without angina pectoris; E78.5 Hyperlipidemia, unspecified; J45.909 Unspecified asthma, uncomplicated; K21.9 Gastro-esophageal reflux disease without esophagitis; K59.09 Other constipation; M54.9 Dorsalgia, unspecified; Z95.1 Presence of aortocoronary bypass graft; Z87.891 Personal history of nicotine dependence; Z86.010 Personal history of colon polyps; Z79.899 Other long term (current) drug therapy; Z80.0 Family history of malignant neoplasm of digestive organs; Z80.6 Family history of leukemia
CPT/HCPCS: 36415; 80048; 80053; 85014; 85018; 85025; 85027; 85610; 85730; 86850; 86900; 86901; 86920; 99283

== ENCOUNTER 2019-03-17 15:00 | Emergency (ER) | payer MEDICARE, OTHER ==
[~2019-03-17] VITALS: Ht 172 cm; Wt 71.4 kg
[~2019-03-17 15:00] MED LIST changes: +DOCU-238 PO; +IBUP-2055 PO
[2019-03-17] MEDS ORDERED: ONDANSETRON 4 MG/2 ML (SDV) Z0FRAN IVP ONE (15:15)
[2019-03-17] MEDS ORDERED: IBUPROFEN 800 MG (MOTRIN) TAB PO ONE (15:15)
[2019-03-17] MEDS ORDERED: ACETAMINOPHEN 500 MG TAB (TYLENOL) PO ONE (15:15)
--- NOTE | 2019-03-17 15:22 | ED General ---
General Chief Complaint: Fever-Adult/Adol Stated Complaint: RECTAL BLEEDING/CHILLS Source of Information: Patient Exam Limitations: No Limitations History of Present Illness Date Seen by Provider: Mar 17, 2019 Time Seen by Provider: 15:18 Initial Comments To ER with reports of fever and chills since this morning. He had nausea but no vomiting. No cough no shortness of breath and normal bowels. No dysuria that is out of the ordinary though he does have some chronic urinary hesitancy. He was admitted last week for a GI bleed, has not yet had a colonoscopy. His stools have not had any blood noted in them since he was discharged including today, still no rectal bleeding. Timing/Duration: 1-2 Days Severity: Moderate Associated Systoms: No Chest Pain, No Cough, No Diaphoresis; Fever/Chills, Malaise, Nausea/Vomiting (mild nausea no vomiting) Allergies and Home Medications Allergies Coded Allergies: No Known Drug Allergies (Unverified , 11/15/15) Home Medications Carvedilol 3.125 Mg Tablet, 3.125 MG PO BID, (Reported) Docusate Sodium 100 Mg Capsule, 200 MG PO BID PRN for CONSTIPATION-1ST LINE, (Reported) Hydrocodone/Acetaminophen 1 Each Tablet, 1 TAB PO Q4H PRN for PAIN Prescribed by: ANSELMO LUNA on 03/28/16 1251 Ibuprofen 200 Mg Tablet, 600 MG PO BID PRN for PAIN-MILD, (Reported) Levofloxacin 750 Mg Tablet, 750 MG PO DAILY Prescribed by: BUD BOWDEN on 03/17/19 1616 Lisinopril 5 Mg Tablet, 5 MG PO DAILY, (Reported) [place] 3 Polyunsat Fatty Acids 1,000 Mg Cap, 1,000 MG PO BID, (Reported) Pravastatin Sodium 40 Mg Tablet, 40 MG PO HS, (Reported) Vit A/Vit C/Vit E/Zinc/Copper 1 Each Tablet, 1 TAB PO BID, (Reported) Patient Home Medication List Home Medication List Reviewed: Yes Review of Systems Review of Systems Constitutional: see HPI, chills, fever EENTM: see HPI Respiratory: no symptoms reported; No cough, No short of breath Cardiovascular: no symptoms reported Gastrointestinal: No abdominal pain, No constipation, No diarrhea, No melena Genitourinary: see HPI, hesitancy Musculoskeletal: no symptoms reported Skin: no symptoms reported Psychiatric/Neurological: No Symptoms Reported Hematologic/Lymphatic: No Symptoms Reported Immunological/Allergic: no symptoms reported Past [place]-Plgjjp-Psewed Hx Patient Social History Former Smoker, Quit: Nov 20, 1969 Recent Foreign Travel: No Contact w/Someone Who Travel: No Recent Hopitalizations: No Immunizations Up To Date Tetanus Booster (TDap): More than 5yrs Date of Pneumonia Vaccine: Nov 21, 1999 Seasonal Allergies Seasonal Allergies: No Past Medical History Surgeries: Yes (TROY IN HIP) CABG, Open Heart Surgery, Orthopedic Respiratory: Yes Asthma Currently Using CPAP: No Currently Using BIPAP: No Cardiac: Yes (triple bypass) Coronary Artery Disease Neurological: No Reproductive Disorders: No Sexually Transmitted Disease: No HIV/AIDS: No Genitourinary: No Gastrointestinal: Yes Polyps Musculoskeletal: Yes Back Injury Endocrine: No HEENT: Yes Cataract Loss of Vision: Bilateral Hearing Impairment: Hard of Hearing Cancer: No Psychosocial: No Integumentary: No Blood Disorders: No Adverse Reaction/Blood Tranf: No Family Medical History Neoplasm 19 FATHER (LEUKEMIA) 19 MOTHER (STOMACH INTESTINE CANCER) No Pertinent Family Hx, Cancer Physical Exam Vital Signs Vital Signs - First Documented 03/17/19 03/17/19 15:27 17:17 Temp 39.4 Pulse 76 Resp 18 B/P (MAP) 184/94 (124) Pulse Ox 94 O2 Delivery Room Air Capillary Refill : Height, Weight, BMI Height: 6'0.00" Weight: 169lbs. 0.8oz. 76.462125wa; 23.05 BMI Method:Stated General Appearance: No Apparent Distress, WD/WN Eyes: Bilateral Eye Normal Inspection, Bilateral Eye PERRL, Bilateral Eye EOMI HEENT: PERRL/EOMI, TMs Normal Neck: Full Range of Motion, Normal Inspection Respiratory: Lungs Clear, Normal Breath Sounds, No Accessory Muscle Use, No R espiratory Distress Cardiovascular: Regular Rate, Rhythm, Normal Peripheral Pulses Gastrointestinal: Normal Bowel Sounds, Non Tender, Soft Extremity: Normal Capillary Refill, Normal Inspection Neurologic/Psychiatric: Alert, Oriented x3 Skin: Normal Color, Warm/Dry Focused Exam Lactate Level 03/17/19 15:14: Lactic Acid Level 1.59 Lactic Acid Level Progress/Results/Core Measures Suspected Sepsis SIRS Temperature: Pulse: Respiratory Rate: Laboratory Tests 03/17/19 15:14: White Blood Count 12.6H Blood Pressure / Mean: 03/17/19 15:14: Lactic Acid Level 1.59 Laboratory Tests 03/17/19 15:14: Creatinine 0.93, Platelet Count 251, Total Bilirubin 1.5H Results/Orders Lab Results Laboratory Tests Test 03/17/19 15:14 03/17/19 15:19 Range/Units White Blood Count 12.6 H 4.3-11.0 10^3/uL Red Blood Count 3.11 L 4.35-5.85 10^6/uL Hemoglobin 9.3 L 13.3-17.7 G/DL Hematocrit 29 L 40-54 % Mean Corpuscular Volume 93 80-99 FL Mean Corpuscular Hemoglobin 30 25-34 PG Mean Corpuscular Hemoglobin Concent 32 32-36 G/DL Red Cell Distribution Width 12.2 10.0-14.5 % Platelet Count 251 130-400 10^3/uL Mean Platelet Volume 9.7 7.4-10.4 FL Neutrophils (%) (Auto) 85 H 42-75 % Lymphocytes (%) (Auto) 7 L 12-44 % Monocytes (%) (Auto) 8 0-12 % Eosinophils (%) (Auto) 0 0-10 % Basophils (%) (Auto) 0 0-10 % Neutrophils # (Auto) 10.7 H 1.8-7.8 X 10^3 Lymphocytes # (Auto) 0.8 L 1.0-4.0 X 10^3 Monocytes # (Auto) 1.0 0.0-1.0 X 10^3 Eosinophils # (Auto) 0.0 0.0-0.3 10^3/uL Basophils # (Auto) 0.0 0.0-0.1 10^3/uL Neutrophils % (Manual) 87 % Lymphocytes % (Manual) 7 % Monocytes % (Manual) 6 % Eosinophils % (Manual) 0 % Basophils % (Manual) 0 % Blood Morphology Comment NORMAL Sodium Level 136 135-145 MMOL/L Potassium Level 3.8 3.6-5.0 MMOL/L Chloride Level 102 98-107 MMOL/L Carbon Dioxide Level 25 21-32 MMOL/L Anion Gap 9 5-14 MMOL/L Blood Urea Nitrogen 16 7-18 MG/DL Creatinine 0.93 0.60-1.30 MG/DL Estimat Glomerular Filtration Rate > 60 BUN/Creatinine Ratio 17 Glucose Level 125 H 70-105 MG/DL Lactic Acid Level 1.59 0.50-2.00 MMOL/L Calcium Level 9.4 8.5-10.1 MG/DL Corrected Calcium 9.5 8.5-10.1 MG/DL Total Bilirubin 1.5 H 0.1-1.0 MG/DL Aspartate Amino Transf (AST/SGOT) 13 5-34 U/L Alanine Aminotransferase (ALT/SGPT) 10 0-55 U/L Alkaline Phosphatase 84 40-136 U/L Total Protein 6.5 6.4-8.2 GM/DL Albumin 3.9 3.2-4.5 GM/DL Urine Color YELLOW Urine Clarity CLEAR Urine pH 5 5-9 Urine Specific [place] 1.015 L 1.016-1.022 Urine Protein 3+ H NEGATIVE Urine Glucose (UA) NEGATIVE NEGATIVE Urine Ketones NEGATIVE NEGATIVE Urine Nitrite NEGATIVE NEGATIVE Urine Bilirubin NEGATIVE NEGATIVE Urine Urobilinogen NORMAL NORMAL MG/DL Urine Leukocyte Esterase NEGATIVE NEGATIVE Urine RBC (Auto) 2+ H NEGATIVE Urine RBC RARE /HPF Urine WBC NONE /HPF Urine Squamous Epithelial Cells RARE /HPF Urine Crystals NONE /LPF Urine Bacteria TRACE /HPF Urine Casts NONE /LPF Urine Mucus SMALL H /LPF Urine Culture Indicated NO Micro Results Microbiology 03/17/19 Influenza Types A,B Antigen (JENNI) - Final, Complete My Orders Orders - BUD BOWDEN [employer] INSPECTOR Cbc With Automated Diff (03/17/19 15:13) Comprehensive Metabolic Panel (03/17/19 15:13) Ua Culture If Indicated (03/17/19 15:13) Ed Iv/Invasive Line Start (03/17/19 15:13) Blood Culture (03/17/19 15:13) Lactic Acid Analyzer (03/17/19 15:13) Chest 1 View, Ap/Pa Only (03/17/19 15:13) Influenza A And B Antigens (03/17/19 15:13) Ondansetron Injection (Zofran Injectio (03/17/19 15:15) Acetaminophen Tablet (Tylenol Tablet) (03/17/19 15:15) Ibuprofen Tablet (Motrin Tablet) (03/17/19 15:15) Manual Differential (03/17/19 15:14) Azithromycin Tablet (Zithromax Tablet) (03/17/19 16:15) Ceftriaxone For Iv Use (Rocephin For I (03/17/19 16:15) Medications Given in ED Current Medications Medications Dose Ordered Sig/Gerardo Route Start Time Stop Time Status Last Admin Dose Admin Acetaminophen 1,000 mg ONCE ONCE PO 03/17/19 15:15 03/17/19 15:17 DC 03/17/19 15:33 1,000 MG Ceftriaxone Sodium 1000 mg/ Sterile Water 10 ml @ 200 mls/hr ONCE ONCE IV 03/17/19 16:15 03/17/19 16:17 DC 03/17/19 16:19 200 MLS/HR Ibuprofen 800 mg ONCE ONCE PO 03/17/19 15:15 03/17/19 15:17 DC 03/17/19 15:33 800 MG Ondansetron HCl 4 mg ONCE ONCE IVP 03/17/19 15:15 03/17/19 15:17 DC 03/17/19 15:33 4 MG Vital Signs/I&O 03/17/19 03/17/19 15:27 17:17 Temp 39.4 Pulse 76 60 Resp 18 23 B/P (MAP) 184/94 (124) 115/55 Pulse Ox 94 O2 Delivery Room Air Capillary Refill : Diagnostic Imaging Diagonstic Imaging: Xray Plain Films/CT/US/NM/MRI: chest Comments NAME: LUKE SULTANA [facility] REC#: [id number] PT STATUS: REG ER : 1935 PHYSICIAN: BUD BOWDEN APRN ADMIT DATE: 03/17/19/ER Draft Date of Exam:03/17/19 CHEST 1 VIEW, AP/PA ONLY INDICATION: Chills and malaise. Frontal chest obtained at 03:44 p.m. and compared to 03/14/2016. There is post sternotomy change with mild cardiomegaly. There is a new area of infiltrate in the left lower lobe suspicious for pneumonia. The right lung is clear. There is no pneumothorax or pleural fluid. IMPRESSION: New focal area of infiltrate in left lung base suspicious for pneumonia. Follow-up is recommended. Underlying cardiomegaly and post sternotomy change. Dictated on workstation # [id number] Dict: 03/17/19 1550 Trans: 03/17/19 1601 [id number] Interpreted by: DAVID GARCÍA MD Electronically signed by: Departure Impression Primary Impression: LLL pneumonia Qualified Codes: J18.1 - Lobar pneumonia, unspecified organism Disposition: 01 HOME, SELF-CARE Condition: Stable Departure-Patient Inst. Decision time for Depature: 16:14 Referrals: CHENG BABCOCK MD (PCP/Family) Primary Care Physician Patient Instructions: Pneumonia, Adult (DC) Add. Discharge Instructions: 1. Tylenol and Motrin for fever control 2. Return to ER for any worsening, he will need to be admitted for IV antibiotics at that point. In The meantime start the oral antibiotics tomorrow All discharge instructions reviewed with patient and/or family. Voiced understanding. Scripts Levofloxacin (Levaquin) 750 Mg Tablet 750 MG PO DAILY, #5 TAB Prov: BUD BOWDEN APRN 03/17/19 BUD BOWDEN APRN Mar 17, 2019 15:22
[2019-03-17 15:23] LABS: BASOPHILS % (AUTO) 0 % (0-10); EOSINOPHILS % (AUTO) 0 % (0-10); HEMATOCRIT 29 % (40-54); HEMOGLOBIN 9.3 G/DL (13.3-17.7); LYMPHOCYTES # (AUTO) 0.8 X 10^3 (1.0-4.0); LYMPHOCYTES % (AUTO) 7 % (12-44); MEAN CORPUSCULAR HEMOGLOBIN 30 PG (25-34); MEAN CORPUSCULAR HGB CONC 32 G/DL (32-36); MEAN CORPUSCULAR VOLUME 93 FL (80-99); MEAN PLATELET VOLUME 9.7 FL (7.4-10.4); MONOCYTES % (AUTO) 8 % (0-12); NEUTROPHILS # (AUTO) 10.7 X 10^3 (1.8-7.8); NEUTROPHILS % (AUTO) 85 % (42-75); PLATELET COUNT 251 10^3/uL (130-400); RED CELL DISTRIBUTION WIDTH 12.2 % (10.0-14.5); WHITE BLOOD COUNT 12.6 10^3/uL (4.3-11.0)
[2019-03-17 15:25] LABS: BILIRUBIN,URINE NEGATIVE (NEGATIVE); CLARITY,URINE CLEAR; COLOR,URINE YELLOW; GLUCOSE, URINE (UA) NEGATIVE (NEGATIVE); KETONES,URINE NEGATIVE (NEGATIVE); LEUKOCYTE ESTERASE ,URINE NEGATIVE (NEGATIVE); NITRITE,URINE NEGATIVE (NEGATIVE); PH,URINE 5 (5-9); PROTEIN,URINE 3+ (NEGATIVE)
[2019-03-17 15:43] LABS: BACTERIA,URINE TRACE /HPF; RBC,URINE RARE /HPF; SQUAMOUS EPITHELIAL CELL,UR RARE /HPF
[2019-03-17 15:46] LABS: ALANINE AMINOTRANSFERASE 10 U/L (0-55); ALBUMIN 3.9 GM/DL (3.2-4.5); ALKALINE PHOSPHATASE 84 U/L (40-136); BILIRUBIN,TOTAL 1.5 MG/DL (0.1-1.0); BUN/CREATININE RATIO 17; CALCIUM 9.4 MG/DL (8.5-10.1); CARBON DIOXIDE 25 MMOL/L (21-32); CHLORIDE 102 MMOL/L (98-107); CREATININE SERUM 0.93 MG/DL (0.60-1.30); GFR ESTIMATED > 60; GLUCOSE 125 MG/DL (70-105); POTASSIUM 3.8 MMOL/L (3.6-5.0); SODIUM 136 MMOL/L (135-145); TOTAL PROTEIN 6.5 GM/DL (6.4-8.2)
--- NOTE | 2019-03-17 16:01 | Diagnostic Imaging Report ---
INDICATION: Chills and malaise. Frontal chest obtained at 03:44 p.m. and compared to 03/14/2016. There is post sternotomy change with mild cardiomegaly. There is a new area of infiltrate in the left lower lobe suspicious for pneumonia. The right lung is clear. There is no pneumothorax or pleural fluid. IMPRESSION: New focal area of infiltrate in left lung base suspicious for pneumonia. Follow-up is recommended. Underlying cardiomegaly and post sternotomy change. Dictated by: Dictated on workstation # [id number]
[2019-03-17] MEDS ORDERED: cefTRIAXone FOR IV USE 1,000 MG in WATER (STERILE) FOR INJECTION 10 ML IV ONE (16:15)
[2019-03-17] MEDS ORDERED: AZITHROMYCIN 250 MG TAB (ZITHROMAX) PO SCH (16:15)
[2019-03-17] MEDS ORDERED: LEVO750T9 PO (16:16)
[2019-03-17 16:25] LABS: LYMPHOCYTES % (MANUAL) 7 %; NEUTROPHILS % (MANUAL) 87 %
[2019-03-17 16:26] LABS: BASOPHILS % (MANUAL) 0 %; EOSINOPHILS % (MANUAL) 0 %; MONOCYTES % (MANUAL) 6 %; RBC MORPH NORMAL
[2019-03-17 17:17] VITALS: BP 115/55
== END 2019-03-17 17:17 | disposition home or self-care (01) ==
LOC: EDUNIT# 15:00 → ER 15:01
DX: J18.1 Lobar pneumonia, unspecified organism (principal); J45.909 Unspecified asthma, uncomplicated; I25.10 Atherosclerotic heart disease of native coronary artery without angina pectoris; Z87.891 Personal history of nicotine dependence; Z95.1 Presence of aortocoronary bypass graft; Z80.0 Family history of malignant neoplasm of digestive organs; Z80.6 Family history of leukemia
CPT/HCPCS: 36415; 71045; 80053; 81000; 83605; 85007; 85027; 87040; 87804

== ENCOUNTER 2022-01-25 13:21 | Emergency (ER) | payer MEDICARE, OTHER ==
[~2022-01-25] VITALS: Ht 185.4 cm; Wt 68.2 kg
[~2022-01-25 13:21] MED LIST changes: +ACHYD1T PO; -DOCU-238 PO; +DOCU-26 PO; -HYDR-3820 PO; -IBUP-2055 PO; +IBUP-2473 PO; +LEVO750T9 PO; -LISI-556 PO; +LISI5TAB20 PO; -SENN-141 PO; +SENN-234 PO; -TRAM50TA2 PO; +TRM50T PO
--- NOTE | 2022-01-25 13:58 | ED Fall/Injury ---
General Chief Complaint: Hip/Pelvic Problems Stated Complaint: FALL/LEFT HIP PAIN Nursing Triage Note: Pt fell this AM when he tripped on a rug and landed on his walker. He has swelling and pain of the left hip. He was ambulatory after the fall, but it is very painful. Source: patient Exam Limitations: no limitations History of Present Illness Date Seen by Provider: Jan 25, 2022 Time Seen by Provider: 13:23 Initial Comments This 86-year-old gentleman presents to the emergency room via EMS after having a fall in his home. He reports the walker feet got hung up on an area rug causing a mechanical fall. He came over the top of the walker and struck his left hip or proximal thigh. He has some pain, swelling, and induration in that area suggestive of hematoma. He is ambulatory. He has history of left hip fracture with pinning. He denies any prodrome contributing to the fall such as weakness, lightheadedness, shortness of breath, etc. He denies any other injury such as head or neck injury. He is alert and oriented. EMS administered fentanyl 100 mcg by IV route in route to the hospital. He denies use of any blood thinning medications. Allergies and Home Medications Allergies Coded Allergies: No Known Drug Allergies (Unverified , 11/15/15) Patient Home Medication List Home Medication List Reviewed: Yes Carvedilol (Carvedilol) 3.125 Mg Tablet, 3.125 MG PO BID, (Reported) Entered as Reported by: THADDEUS PADILLA on 11/15/15 0933 Docusate Sodium (Stool Softener) 100 Mg Capsule, 200 MG PO BID PRN for CONSTIPATION-1ST LINE, (Reported) Entered as Reported by: RON HARKINS on 03/07/19 1052 Hydrocodone Bit/Acetaminophen (HYDROcodone/APAP 10/325 TABLET) 1 Each Tablet, 1 TAB PO Q4H PRN for PAIN Prescribed by: ANSELMO LUNA on 03/28/16 1251 Ibuprofen (Ibuprofen) 200 Mg Tablet, 600 MG PO BID PRN for PAIN-MILD, (Reported) Entered as Reported by: MARLO CLAUDIO on 03/05/19 1619 Lisinopril (Lisinopril) 5 Mg Tablet, 5 MG PO DAILY, (Reported) Entered as Reported by: THADDEUS PADILLA on 11/15/15 0933 [place] 3 Polyunsat Fatty Acids (Fish Oil 1,000 mg Capsule) 1,000 Mg Cap, 1,000 MG PO BID, (Reported) Entered as Reported by: THADDEUS PADILLA on 11/15/15 09 Pravastatin Sodium (Pravastatin Sodium) 40 Mg Tablet, 40 MG PO HS, (Reported) Entered as Reported by: KELLY HANKINS on 03/14/16 1301 Discontinued Medications Levofloxacin (Levaquin) 750 Mg Tablet, 750 MG PO DAILY Discontinued Reason: No Longer Taking Prescribed by: BUD BOWDEN on 03/17/19 1616 Last Action: Discontinued Vit A/Vit C/Vit E/Zinc/Copper (Preservision Areds Tablet) 1 Each Tablet, 1 TAB PO BID, (Reported) Discontinued Reason: No Longer Taking Entered as Reported by: KELLY HANKINS on 03/14/16 1301 Last Action: Discontinued Review of Systems Review of Systems Constitutional: no symptoms reported Eyes: No Symptoms Reported Ears, Nose, Mouth, Throat: no symptoms reported Respiratory: no symptoms reported Cardiovascular: no symptoms reported Gastrointestinal: no symptoms reported Genitourinary: no symptoms reported Musculoskeletal: see HPI Skin: other (Bruising over affected area) Psychiatric/Neurological: No Symptoms Reported Past Eemheck-Emcyqd-Bgwbpm Hx Patient Social History Tobacco Use?: No Use of E-Cig and/or Vaping dev: No Substance use?: No Alcohol Use?: No Pt feels they are or have been: No Immunizations Up To Date Tetanus Booster (TDap): More than 5yrs Seasonal Allergies Seasonal Allergies: No Past Medical History Surgeries: Yes (TROY IN HIP) CABG, Open Heart Surgery, Orthopedic (Pinning of left hip, spine surgery) Respiratory: Yes Asthma Currently Using CPAP: No Currently Using BIPAP: No Cardiac: Yes (triple bypass) Coronary Artery Disease Neurological: No Reproductive Disorders: No Sexually Transmitted Disease: No HIV/AIDS: No Genitourinary: No Gastrointestinal: Yes Polyps Musculoskeletal: Yes Back Injury, Chronic Back Pain Endocrine: No HEENT: Yes Cataract Loss of Vision: Bilateral Hearing Impairment: Hard of Hearing Cancer: No Psychosocial: No Integumentary: No Blood Disorders: No Adverse Reaction/Blood Tranf: No Family Medical History Neoplasm 19 FATHER (LEUKEMIA) 19 MOTHER (STOMACH INTESTINE CANCER) No Pertinent Family Hx, Cancer Physical Exam Vital Signs Vital Signs - First Documented 01/25/22 13:21 Temp 36.8 Pulse 61 Resp 18 B/P (MAP) 196/103 (134) Pulse Ox 98 O2 Delivery Room Air Capillary Refill : Less Than 3 Seconds Height, Weight, BMI Height: 6'0.00" Weight: 169lbs. 0.8oz. [id number]; 19.00 BMI Method:Stated General Appearance: WD/WN, no apparent distress, thin HEENT: normal ENT inspection Neck: normal inspection Cardiovascular: regular rate, rhythm, no edema, no murmur Respiratory: lungs clear, normal breath sounds, no respiratory distress Gastrointestinal: normal bowel sounds, non tender, soft Extremities: no pedal edema, other (There is swelling and induration over the anterior and lateral portions of the left proximal thigh with some subtle ecchymosis. Findings seem consistent with hematoma. Movement, strength, and sensation all intact distally. No pain in the hip with rotation of the left lower extremity. There is pain with palpation directly over affected areas.) Neurologic/Psychiatric: no motor/sensory deficits, alert, normal mood/affect, oriented x 3 Skin: normal color, warm/dry, ecchymosis Nico Coma Score Best Eye Response: (4) Open Spontaneously Best Verbal Response: (5) Oriented Best Motor Response: (6) Obeys Commands Nico Total: 15 Progress/Results/Core Measures Results/Orders My Orders Orders - RHEA TITUS MD Femur, Left, 2 Views (01/25/22 13:31) Pelvis 1 To 2 Views (01/25/22 13:31) Fentanyl Inj (Sublimaze Injection) (01/25/22 15:15) Vital Signs/I&O 01/25/22 13:21 Temp 36.8 Pulse 61 Resp 18 B/P (MAP) 196/103 (134) Pulse Ox 98 O2 Delivery Room Air Blood Pressure Mean: 134 Progress Progress Note : Progress Note No acute fractures or dislocations were identified. Patient likely has h ematoma/contusion. Expectations for course of this injury were discussed with patient and his grandson. See discharge instructions. Additional dose of fentanyl was given prior to departure for pain control on the way home. Diagnostic Imaging Diagonstic Imaging: Xray Plain Films/CT/US/NM/MRI: femur Comments Femur x-ray viewed by me and report reviewed. See report below: NAME: LUKE SULTANA REC#: [id number] PT STATUS: REG ER : 1935 PHYSICIAN: RHEA TITUS MD ADMIT DATE: 01/25/22/ER Draft Date of Exam:01/25/22 FEMUR, LEFT, 2 VIEWS EXAM: FEMUR, LEFT, 2 VIEWS INDICATION: Trauma. Fall. Left hip pain. COMPARISON: None. FINDINGS: Demineralization. Postoperative changes in the left hip appear intact without evidence of loosening. No fractures are identified. Severe degenerative changes in the left knee and left hip. Atherosclerotic calcifications. IMPRESSION: 1. No acute radiographic findings in the left hip. 2. Postoperative changes in the left hip without evidence of hardware failure. 3. Severe degenerative changes in the left hip and left knee. Dictated on workstation # [id number] Dict: 01/25/22 1429 Trans: 01/25/22 1439 CVB [id number] Interpreted by: MINDA JONAS MD Diagonstic Imaging: Xray Plain Films/CT/US/NM/MRI: pelvis Comments Pelvis x-ray viewed by me and report reviewed. See report below: NAME: LUKE SULTANA [facility] REC#: [id number] PT STATUS: REG ER : 1935 PHYSICIAN: RHEA TITUS MD ADMIT DATE: 01/25/22/ER Draft Date of Exam:01/25/22 PELVIS 1 TO 2 VIEWS INDICATION: Status post fall. Hip pain EXAMINATION: Pelvis 01/25/2022. FINDINGS: There is partially visualized postoperative change left hip. There are clips towards the right hemipelvis. The hip joint spaces intact with moderate bilateral degenerative changes. No fractures or dislocations appreciated. IMPRESSION: 1. Chronic findings with no acute osseous abnormality. If pain persists or patient cannot bear weight, MRI recommended. Dictated on workstation # [id number] Dict: 01/25/22 1403 Trans: 01/25/22 1410 CVB [id number] Interpreted by: CELI SAHNI MD Departure Impression Primary Impression: Traumatic hematoma of left thigh Qualified Codes: S70.12XA - Contusion of left thigh, initial encounter Additional Impression: Fall on same level Qualified Codes: W18.30XA - Fall on same level, unspecified, initial encounter Disposition: 01 HOME, SELF-CARE Condition: Stable Departure-Patient Inst. Decision time for Depature: 14:56 Patient Instructions: HEMATOMA Add. Discharge Instructions: You likely have a bruising and a hematoma in your left thigh. Icing in 20- minute intervals for the first 1 to 2 days may be helpful in reducing the size and pain of the hematoma. There will likely be some fullness and firmness in that area for a couple of weeks. You may have migrating discoloration as the blood and the hematoma breaks down over time. For short-term relief of pain, you may take 1.5 or 2 of your hydrocodone tablets every 4-6 hours. Monitor for excessive drowsiness. Do not exceed maximum doses of Tylenol (acetaminophen) which is 650 mg in a 4-hour period of time or 1000 mg in a 6-hour period of time. Gradually increase level of activity as pain allows. Return to care if you have worsening symptoms despite following these instructions. All discharge instructions reviewed with patient and/or family. Voiced understanding. RHEA TITUS MD Jan 25, 2022 13:58
--- NOTE | 2022-01-25 14:11 | Diagnostic Imaging Report ---
INDICATION: Status post fall. Hip pain EXAMINATION: Pelvis 01/25/2022. FINDINGS: There is partially visualized postoperative change left hip. There are clips towards the right hemipelvis. The hip joint spaces intact with moderate bilateral degenerative changes. No fractures or dislocations appreciated. IMPRESSION: 1. Chronic findings with no acute osseous abnormality. If pain persists or patient cannot bear weight, MRI recommended. Dictated by: Dictated on workstation # [id number]
--- NOTE | 2022-01-25 14:36 | Diagnostic Imaging Report ---
EXAM: FEMUR, LEFT, 2 VIEWS INDICATION: Trauma. Fall. Left hip pain. COMPARISON: None. FINDINGS: Demineralization. Postoperative changes in the left hip appear intact without evidence of loosening. No fractures are identified. Severe degenerative changes in the left knee and left hip. Atherosclerotic calcifications. IMPRESSION: 1. No acute radiographic findings in the left hip. 2. Postoperative changes in the left hip without evidence of hardware failure. 3. Severe degenerative changes in the left hip and left knee. Dictated by: Dictated on workstation # [id number]
[2022-01-25] MEDS ORDERED: fentaNYL INJ 100 MCG/2 ML AMP IVP ONE (15:15)
[2022-01-25 15:20] VITALS: BP 161/88
== END 2022-01-25 15:20 | disposition home or self-care (01) ==
LOC: EDUNIT# 13:21 → ER 13:23
DX: S70.12XA Contusion of left thigh, initial encounter (principal); Z87.81 Personal history of (healed) traumatic fracture; Z28.310 Unvaccinated for COVID-19; W01.0XXA Fall on same level from slipping, tripping and stumbling without subsequent striking against object, initial encounter; Y92.009 Unspecified place in unspecified non-institutional (private) residence as the place of occurrence of the external cause
CPT/HCPCS: 72170; 73552